=== PATIENT | female | born 1970 | race Caucasian/White ===

== ENCOUNTER → 2019-04-01 09:39 | Outpatient (CLI) | payer OTHER ==
[2013-05-17 09:14] VITALS: BMI 45.3
[~2019-04-01 09:39] MED LIST: BYSTOLIC5 MG PO; CALCIUM CITRATE1 TAB PO; CLARITIN 10 MG10 MG NG; FISH OIL 1,0001 CA1 PO; LASIX20 MG PO; POTASSIUM CHLOR8 ME1 PO; PRAVACHOL10 MG PO; PREDNISONE10 MG PO; PRILOSEC20 MG PO; PROAIR HFA8.5 GM INH; RYBIX ODT50 MG PO; VITAMIN D50000 UNIT PO; VOLTAREN75 MG PO
== END | disposition home or self-care (01) ==
LOC: D.RAD 09:00
PROVIDERS: ATTEND Surgery
DX: R47.02 Dysphasia (principal)

== ENCOUNTER 2019-04-29 10:42 | Inpatient (IN) | payer OTHER ==
[2019-04-26 09:16] LABS: HEMATOCRIT 40.8 % (36.0-48.0); HEMOGLOBIN 13.7 g/dL (12-16); MCH 30.2 pg (26.0-34.0); MCHC 33.6 g/dL (31.0-37.0); MCV 89.9 fL (80.0-100.0); MEAN PLATELET VOLUME 8.7 fL (7.4-10.4); RBC 4.54 10x6/uL (4.00-5.40); RDW 13.1 % (11.5-14.5); WBC 10.9 10x3/uL (4.8-10.8)
[2019-04-26 09:20] LABS: CALC OSMOLALITY 276 mosm/kg (275-300); CALCIUM 8.8 mg/dL (8.5-10.1); CARBON DIOXIDE 26.6 mmol/L (21.0-32.0); CHLORIDE - SERUM 105 mmol/L (98-107); CREATININE - SERUM 0.8 mg/dL (0.6-1.3); GLUCOSE 84 mg/dL (74-106); POTASSIUM - SERUM 3.9 mmol/L (3.5-5.1); SODIUM 140 mmol/L (136-145); UREA NITROGEN 10 mg/dL (7-18); eGFR NON AFRICAN AMERICAN 81 mL/min (90-120)
[~2019-04-29] VITALS: Ht 157.5 cm; Wt 104.5 kg
[2019-04-29] VITALS (13 sets, daily range): BP systolic 122–149; BP diastolic 67–76; Ht 157.5 cm; Wt 104.5 kg
[2019-04-29 07:41] LABS: HCG URINE NEGATIVE (NEGATIVE)
[~2019-04-29 10:42] MED LIST changes: +AMBIEN10 MG PO; +BAYER CHEWABLE81 MG PO; +CARDIZEM CD240 MG PO; +COLCRYS0.6 MG PO; +DUPIXENT IM; +LEXAPRO10 MG PO; +SYMBICORT 16010.2 GM INH; +ZYRTEC10 MG PO
--- NOTE | 2019-04-29 11:16 | NUR ---
PATIENT ADMITTED TO ROOM 2227. ADMISSION ASSESSMENT COMPLETE. SPOKE WITH DR JOINER WHO CHANGED MORPHINE CODING TEAM LEAD TO DILAUDID CODING TEAM LEAD D/T PATIENT ALLERGIC TO MORPHINE. DILAUDID CODING TEAM LEAD SET UP. PHARMACY CALLED FOR MYLICON DROPS. PT HAVING GAS PAIN IN SHOULDERS. DENIES FURTHER NEEDS. WILL CONTINUE TO MONITOR. POST OP VITALS STABLE.
--- NOTE | 2019-04-29 12:00 | NUR ---
STATES PAIN SLIGHTLY IMPROVED TO 8/10 FROM 10/10. NO PAIN IN STOMACH OR AT INCISION SITES. PAIN IN SHOULDERS FROM GAS. WILL CONTINUE TO MONITOR.
--- NOTE | 2019-04-29 13:25 | NUR ---
RESTING IN BED. DENIES NEEDS. POST OP VITALS REMAIN STABLE. WILL CONTINUE TO MONITOR.
--- NOTE | 2019-04-29 14:21 | NUR ---
STATES PAIN DECREASED TO 5/10. WILL CONTINUE TO MONITOR.
--- NOTE | 2019-04-29 16:37 | NUR ---
RESTING IN BED. TOLERATED POPCICLE AND JELLO. DENIES NEEDS. WILL CONTINUE TO MONITOR.
--- NOTE | 2019-04-29 17:22 | OP ---
PATIENT NAME: KATELYN LING MEDICAL RECORD: [id number] :68 LOCATION:D.[id number] ADMISSION DATE: SURGEON: MICHAEL JOINER MD DATE OF OPERATION: 04/29/2019 SURGEON: Michael Joiner MD PREOPERATIVE DIAGNOSES: 1. Dysphagia. 2. Gastroesophageal reflux disease. 3. History of laparoscopic adjustable gastric banding. 4. Morbid obesity. 5. Essential hypertension. POSTOPERATIVE DIAGNOSES: 1. Dysphagia. 2. Gastroesophageal reflux disease. 3. History of laparoscopic adjustable gastric banding. 4. Morbid obesity. 5. Essential hypertension. PROCEDURE PERFORMED: 1. Laparoscopic hiatal hernia repair. 2. Laparoscopic partial gastrectomy. 3. Laparoscopic gastric band removal and subcutaneous components. ANESTHESIA: General. COMPLICATIONS: None. SPECIMENS: 1. Partial gastrectomy. 2. Laparoscopic band and subcutaneous components. ANESTHESIA: General. ESTIMATED BLOOD LOSS: 40 cc. Case was clean contaminated. OPERATIVE COURSE: After consent was obtained, the patient was taken to the operating room and placed in the supine position on the operating room table. Next, general anesthesia was given via endotracheal intubation after a timeout was performed to confirm the correct patient and procedure. The abdomen was prepped and draped in typical sterile fashion. Local anesthetic was injected just above the umbilicus. A stab incision was made with 11-blade scalpel. Using an 11-mm bladeless optical trocar, the abdomen was entered under direct laparoscopic vision. Adequate pneumoperitoneum was achieved. The abdominal cavity was inspected. No evidence of bowel injury. No evidence of bleeding. At this time, all remaining trocars were placed under direct laparoscopic vision, a 12-mm trocar in the right lateral quadrant, 5-mm trocar in the left lateral and right lateral quadrant and a Charan retractor in the subxiphoid position. All instruments were placed under direct laparoscopic vision. The left lobe of the liver was then elevated using the Charan liver retractor exposing the GE junction. There were severe adhesions noted from the OPERATIVE REPORT [id number] KATELYN LING undersurface of the liver to the anterior stomach of the gastric band. Meticulous dissection was performed with a combination of electrocautery and sharp scissor dissection, freeing up the adhesions. The capsule was opened along the length of the gastric band using electrocautery. The clasp was undone. The tubing was then cut with Metzenbaum scissors. The band was unclasped and was removed and placed in the left lateral quadrant at this time. This was done in conjunction simultaneously as the hiatus was dissected as the gastric band and upper portion of the stomach were within the hiatal hernia. Circumferential dissection continued on the right crura with the Harmonic scalpel and posteriorly until the left crura was identified. This was quite difficult as the previous operation there were multiple sutures along the left crura to the stomach, which had been wrapped around the band and secured on the left side near the crura. The adhesions and crural sutures were taken down using Harmonic scalpel. A small gastrotomy in the cardia of the stomach was made. The remaining portion of the stomach was then able to be dissected off of the left crura allowing for circumferential dissection. The hiatus was then dissected until approximately 4-5 cm of intra-abdominal esophagus were obtained. The remaining portion of the capsule was dissected using the Harmonic scalpel. The hiatus was then closed with 0 Stratafix polypropylene suture. The gastrotomy was closed using a single firing of the linear cutting stapler. The gastrectomy specimen was approximately 4 cm in length and 2 cm in width. The partial gastrectomy specimen was then removed. The gastric band was then removed as well through the 12-mm trocar site. The 11-mm trocar site was closed with an 0 Vicryl suture and a Vikas-Sherrie suture passer in direct laparoscopic vision. At this time, the abdomen was copiously irrigated and suctioned. Careful attention was paid to hemostasis. The staple line was meticulously inspected with no evidence of leak or bleeding. At this time, the Charan liver retractor was removed. All remaining instruments were removed. The abdomen was desufflated. Trocars were removed. The subcutaneous port was within the 12-mm trocar insertion site, which was opened to allow for dissection on to the subcutaneous port. Dissection of the subcutaneous port was performed with electrocautery. It was grasped and removed in its entirety and sent for permanent pathology with the gastric band. The fascia was then closed with an 0 Vicryl suture. Skin incisions were then closed with 4-0 Monocryl, Mastisol, and Steri-Strips. At the end of case, all needle and instrument counts were correct. No complications occurred. The patient was extubated and transferred to the PACU in stable condition. TRANSINT:[id number] Voice Confirmation ID: [id number] DOCUMENT ID: [id number] MICHAEL JOINER MD at 1722 CC: [id number] DICTATION DATE: 04/29/19 1007 COKE INSPECTOR: 04/29/19 1102 REG [facility] [address] [id number]
--- NOTE | 2019-04-29 18:15 | NUR ---
RESTING IN BED. DENIES NEEDS. BED LOW. CALL TRIMBLE AND PERSONAL ITEMS IN REACH. WILL CONTINUE TO MONITOR.
--- NOTE | 2019-04-30 00:02 | NUR ---
A&O X 4. 5 LAP SITES TO ABDOMEN, C/D/I. REPORTS GAS PAIN IN UPPER BODY. STATES SHE'S BEEN GETTING UP AND WALKING AROUND. WILL CONTINUE TO MONITOR.
[2019-04-30 00:47] VITALS: BP 139/69
[2019-04-30 05:14] VITALS: BP 126/66
--- NOTE | 2019-04-30 06:38 | NUR ---
I have reviewed this patient and I concur with the Shift Assessment completed by the Licensed Practical Nurse today this shift.
[2019-04-30 06:40] LABS: ALBUMIN 3.4 g/dL (3.4-5.0); ANION GAP 12.7 mmol/L (8-16); BILIRUBIN - TOTAL 0.49 mg/dL (0.2-1.3); CALCIUM 8.4 mg/dL (8.5-10.1); CARBON DIOXIDE 27.8 mmol/L (21.0-32.0); CREATININE - SERUM 0.9 mg/dL (0.6-1.3); POTASSIUM - SERUM 3.5 mmol/L (3.5-5.1); PROTEIN - SERUM 6.6 g/dL (6.4-8.2)
[2019-04-30 06:55] LABS: HEMATOCRIT 38.7 % (36.0-48.0); HEMOGLOBIN 12.8 g/dL (12-16); MCH 30.2 pg (26.0-34.0); MCHC 33.1 g/dL (31.0-37.0); MCV 91.3 fL (80.0-100.0); MEAN PLATELET VOLUME 8.7 fL (7.4-10.4); PLATELET COUNT 348 10x3/uL (130-400); RBC 4.24 10x6/uL (4.00-5.40); RDW 13.3 % (11.5-14.5); WBC 20.1 10x3/uL (4.8-10.8)
--- NOTE | 2019-04-30 07:47 | NUR ---
ALERT AND ORIENTED. LUNGS CLEAR BIALTERALLY. HEART SOUNDS S1 AND S2 HEARD IN ALL ROY. LAP SITES X 5 TO ABD C/D/I. IV TO RIGHT HAND PATENT WITHOUT REDNESS. RADIO NEWS WRITER INFUSING. DENIES NEEDS. BED LOW. CALL TRIMBLE AND PERSONAL ITEMS IN REACH. WILL CONTINUE TO MONITOR.
[2019-04-30 07:54] LABS: LYMPHOCYTES 1 % (15-50); MONOCYTES 7 % (2-11); NEUTROPHILS 90 % (40-80); PLATELET ESTIMATE NORMAL
[2019-04-30 08:37] VITALS: BP 118/67
[2019-04-30] MEDS ORDERED: HYDROCODON-ACE1 EAC7 PO (08:42)
--- NOTE | 2019-04-30 11:45 | NUR ---
PATIENT STATES JORY MAKES HER SICK AND REQUESTS DISCHARGE PAIN MED CHANGE TO LOW DOSE OF PERCOCET. SPOKE WITH DR JOINER WHO STATES WILL CHANGE DISCHARGE MED.
[2019-04-30] MEDS ORDERED: PERCOCET 5-3251 TAB PO (12:36)
--- NOTE | 2019-04-30 13:46 | NUR ---
DISCHARGE EDUCATION PROVIDED BOTH WRITTEN AND VERBAL. VERBALIZED UNDERSTANDING. DENIES FURTHER QUESTIONS. IV REMOVED FROM RIGHT HAND WITH TIP INTACT. PATIENT DISCHARGED HOME WITH WITH ALL BELONGINGS.
--- NOTE | 2019-05-03 15:01 | MORECARE ---
CASE MANAGEMENT DISCHARGE SUMMARY PATIENT: KATELYN LING UNIT: [id number] ADM DATE: 04/29/19 AGE: 48 : 68 SEX: F ROOM/BED: D.2227 AUTHOR: ADRIANO CUHA PHYSICIAN: REFERRING PHYSICIAN: MICHAEL JOINER MD DATE OF SERVICE: 05/03/19 Discharge Plan Patient Name: KATELYN LING [facility] [facility] 1970 Planned Disposition: Home Anticipated Discharge Date: Discharge Date: 04/30/2019 Expected LOS: 0 Initial Reviewer: [email or web address] Initial Review Date: 05/03/2019 Generated: 05/03/19 4:00 pm Patient Name: KATELYN LING Page 03233 at 1501 All edits/amendments must be made on the electronic document DICTATION DATE: 05/03/191499 RESIDENTIAL FEE APPRAISER: RAJNI 05/03/19 1500 RPT#: [id number] DC DATE:04/30/19 STATUS: DIS IN [facility] [address] [place] [address] END OF REPORT
== END 2019-04-30 13:56 | disposition home or self-care (01) | DRG 327 ==
LOC: D.OPS 10:42 → D.MS 10:42 → D.OPS 11:14 → D.MS 11:16 → D.SDCHOLD 04-30 10:48 → D.MS 04-30 10:48
PROVIDERS: Anesthesiology; ADMIT Surgery; ATTEND Surgery
PROC: 0DP64CZ Removal of Extraluminal Device from Stomach, Percutaneous Endoscopic Approach (ICD-10-PCS; 2019-04-29)
PROC: 0DB64ZZ Excision of Stomach, Percutaneous Endoscopic Approach (ICD-10-PCS; 2019-04-29)
PROC: 0BQT4ZZ Repair Diaphragm, Percutaneous Endoscopic Approach (ICD-10-PCS; principal; 2019-04-29 08:00)
DX: K21.9 Gastro-esophageal reflux disease without esophagitis (principal); Z68.41 Body mass index [BMI] 40.0-44.9, adult; R13.10 Dysphagia, unspecified; E66.01 Morbid (severe) obesity due to excess calories; I10 Essential (primary) hypertension

== ENCOUNTER 2019-05-01 13:59 | Inpatient (IN) | payer OTHER ==
[~2019-05-01] VITALS: Ht 157.5 cm; Wt 112.0 kg
[2019-05-01] VITALS (7 sets, daily range): BP systolic 122–145; BP diastolic 66–74; BMI 44.6
[~2019-05-01 13:59] MED LIST changes: +HYDROCODON-ACE1 EAC7 PO; +PERCOCET 5-3251 TAB PO
[2019-05-01 14:35] LABS: BASOPHILS 0.1 % (0-2); EOSINOPHILS 0.3 % (0-7); HEMATOCRIT 39.2 % (36.0-48.0); HEMOGLOBIN 12.7 g/dL (12-16); IMMATURE GRANULOCYTES 0.5 % (0-5); MCHC 32.4 g/dL (31.0-37.0); MCV 92.7 fL (80.0-100.0); MONOCYTES 6.6 % (2-11); NEUTROPHILS 86.5 % (40-80); PLATELET COUNT 309 10x3/uL (130-400); RBC 4.23 10x6/uL (4.00-5.40); RDW 13.8 % (11.5-14.5); WBC 15.6 10x3/uL (4.8-10.8)
[2019-05-01 14:52] LABS: ALBUMIN 3.3 g/dL (3.4-5.0); ALKALINE PHOSPHATASE 84 U/L (46-116); ALT (SGPT) 34 U/L (10-68); BILIRUBIN - TOTAL 0.81 mg/dL (0.2-1.3); CALCIUM 8.7 mg/dL (8.5-10.1); CARBON DIOXIDE 27.7 mmol/L (21.0-32.0); CHLORIDE - SERUM 102 mmol/L (98-107); CREATININE - SERUM 0.9 mg/dL (0.6-1.3); GLUCOSE 126 mg/dL (74-106); PROTEIN - SERUM 6.9 g/dL (6.4-8.2); SODIUM 140 mmol/L (136-145); eGFR NON AFRICAN AMERICAN 70 mL/min (90-120)
[2019-05-01 14:54] LABS: CALC OSMOLALITY 279 mosm/kg (275-300); POTASSIUM - SERUM 4.5 mmol/L (3.5-5.1); UREA NITROGEN 11 mg/dL (7-18)
[2019-05-01 14:56] LABS: AMYLASE - SERUM 31 U/L (25-115); LIPASE 96 U/L (73-393)
[2019-05-01 14:57] LABS: TROPONIN-I < 0.017 ng/mL (0.000-0.060)
--- NOTE | 2019-05-01 19:00 | NUR ---
REPORT RECIEVED, AWAITING PT TO RETURN FROM CT.
--- NOTE | 2019-05-01 19:20 | NUR ---
PT RETURNED FROM CT. AAOX4, ON ROOM AIR, FACE FLUSH, ASSESSMENT COMPLETED, SEE FLOWSHEET. RT AC PIV INFUSING, SEE IV FLOWSHEET. FOLLOWS COMMANDS, NO ACUTE DISTRESS NOTED, WILL CONTINUE TO MONITOR.
--- NOTE | 2019-05-01 21:00 | NUR ---
PT RESTING IN BED, FAMILY AT BEDSIDE. NO ACUTE DISTRESS NOTED.
[2019-05-01 22:04] LABS: APTT 25.7 SECONDS (22.8-39.4); INR 1.16 (0.85-1.17); PROTIME 14.3 SECONDS (11.6-15.0)
--- NOTE | 2019-05-01 23:00 | NUR ---
PT RESTING IN BED, AAOX4, NO ACUTE DISTRESS NOTED.
[2019-05-02] VITALS (18 sets, daily range): BP systolic 104–145; BP diastolic 63–93; BMI 45.2
--- NOTE | 2019-05-02 01:23 | NUR ---
CRITICOR CATH PUT IN PER MD ORDER WITH STERILE TECHNIQUE. PATIENT TOLERATED OK WITH PAIN AND SHALLOW BREATHING DUE TO PAIN. PAITENT HAD APPROX 400 IMMEDIATE RETURN OF YELLOW URINE.
--- NOTE | 2019-05-02 03:00 | NUR ---
PT RESTING IN BED, PT ON 2L O2 VIA NC. NO ACUTE DISTRESS NOTED.
[2019-05-02 03:43] LABS: APPEARANCE CLEAR (CLEAR); BILIRUBIN NEGATIVE (NEGATIVE); COLOR DK YELLOW (YELLOW); GLUCOSE NEGATIVE (NEGATIVE); KETONE SMALL mg/dL (NEGATIVE); NITRITE NEGATIVE (NEGATIVE); PROTEIN NEGATIVE (NEGATIVE); SPECIFIC GRAVITY 1.015 (1.005-1.020); UROBILINOGEN NORMAL (NORMAL)
[2019-05-02 03:44] LABS: BACTERIA FEW /hpf (NEGATIVE); EPITHELIAL CELLS 0-5 /hpf (0-5); RED CELLS - URINE 0-5 /hpf (0-5); WHITE CELLS - URINE 0-5 /hpf (NEGATIVE)
[2019-05-02 04:40] LABS: BASOPHILS 0.1 % (0-2); EOSINOPHILS 0.3 % (0-7); HEMATOCRIT 37.5 % (36.0-48.0); HEMOGLOBIN 11.8 g/dL (12-16); IMMATURE GRANULOCYTES 0.4 % (0-5); LYMPHOCYTES 5.7 % (15-50); MCH 29.4 pg (26.0-34.0); MCHC 31.5 g/dL (31.0-37.0); MCV 93.3 fL (80.0-100.0); MEAN PLATELET VOLUME 8.7 fL (7.4-10.4); MONOCYTES 7.7 % (2-11); NEUTROPHILS 85.8 % (40-80); PLATELET COUNT 303 10x3/uL (130-400); RBC 4.02 10x6/uL (4.00-5.40); WBC 18.9 10x3/uL (4.8-10.8)
--- NOTE | 2019-05-02 05:00 | NUR ---
PT RESTING IN BED, FAMILY AT BEDSIDE.
[2019-05-02 05:02] LABS: ALBUMIN 2.5 g/dL (3.4-5.0); ALKALINE PHOSPHATASE 108 U/L (46-116); ALT (SGPT) 34 U/L (10-68); BILIRUBIN - TOTAL 0.95 mg/dL (0.2-1.3); CALC OSMOLALITY 282 mosm/kg (275-300); CALCIUM 7.9 mg/dL (8.5-10.1); CARBON DIOXIDE 28.3 mmol/L (21.0-32.0); CHLORIDE - SERUM 106 mmol/L (98-107); CREATININE - SERUM 0.7 mg/dL (0.6-1.3); GLUCOSE 119 mg/dL (74-106); MAGNESIUM - SERUM 1.8 mg/dL (1.8-2.4); PHOSPHOROUS 3.3 mg/dL (2.5-4.9); PROTEIN - SERUM 5.9 g/dL (6.4-8.2); SODIUM 142 mmol/L (136-145); TROPONIN-I < 0.017 ng/mL (0.000-0.060); UREA NITROGEN 9 mg/dL (7-18); eGFR NON AFRICAN AMERICAN > 90 mL/min (90-120)
--- NOTE | 2019-05-02 07:10 | NUR ---
REPORT RECEIVED. ASSESSMENT COMPLETE PER FLOW SHEET. VSS. NO NEW CHANGES WILL CONTINUET OM ONITOR
--- NOTE | 2019-05-02 08:50 | NUR ---
CONSENTS OBTAINED. DR JOINER AT BEDSIDE GIVEN UPDATE. FAMILY GIVEN UPDATE AT BEDSIDE. ALL QUESTIONS ANSWERED. DENIES NEEDS. NEW ORDERS RECEIVED. WILL ADM.
--- NOTE | 2019-05-02 09:10 | NUR ---
OR CALLED TO PREOP. MEDS ADM.
--- NOTE | 2019-05-02 09:58 | NUR ---
OR AT BEDSIDE. PT LEFT VIA BED. FAMILY AT BEDSIDE GIVEN UPDATE.
--- NOTE | 2019-05-02 14:55 | NUR ---
PT BACK FROM OR AT THIS TIME. FAMILY NOTIFIED. DR JOINER AT [facility] NEW ORDERS RECEIVED. WILL ADM .
--- NOTE | 2019-05-02 15:15 | NUR ---
REASSESSMENT COMPLETE PER FLOW SHEET. VSS. PT RSTING COMFORTABLY WILL CONTINUE TOMONITOR
--- NOTE | 2019-05-02 18:23 | OP ---
PATIENT NAME: KATELYN LING MEDICAL RECORD: [id number] :68 LOCATION:.[facility] D.2305 ADMISSION DATE:05/01/19 SURGEON: FREEMAN CARIAS MD DATE OF OPERATION: 05/02/2019 PREOPERATIVE DIAGNOSIS: Postoperative gastric leak. POSTOPERATIVE DIAGNOSIS: Postoperative gastric leak. PROCEDURE: Esophagogastroscopy. SURGEON: Freeman Carias MD SOLDERER: None. BLOOD LOSS: Minimal. ANESTHESIA: General. Dr. DORCAS Ayala was already performing the laparoscopic exploration. He has already done 1 EGD on the patient. He asked for me to come and do a second EGD intraoperatively. DESCRIPTION OF PROCEDURE: The patient was already under general anesthesia and a bite block was already in place. A gastroscope was inserted into the mouth. It was advanced easily into the hypopharynx. The esophagus was easily intubated as well as the stomach. The duodenum was not intubated. He had an instrument through the gastric perforation. I was able to visualize this endoscopically. I then turned off the endoscopic light. He performed the gastric repair. He then instilled normal saline into the left upper quadrant. I insufflated the stomach and we saw no bubbling of air indicating an airtight repair. I then removed the gastroscope without dislodging the nasogastric tube. TRANSINT:[id number] Voice Confirmation ID: [id number] DOCUMENT ID: [id number] FREEMAN CARIAS MD at 1823 CC: [id number] DICTATION DATE: 05/02/19 1328 ICU CLERK: 05/02/[address] [facility] [address] [place] [address]
--- NOTE | 2019-05-02 19:00 | NUR ---
REPORT RECIEVED, PT RESTING IN BED, SITTING UP, AAOX4. ASSESSMENT COMPLETED, SEE FLOWSHEET. TRINY DRAIN X2 IN LEFT AND RIGHT ABDOMEN, LT SUBCLAVIAN CVL, SEE IV FLOWSHEET. PT ON 3L O2 VIA NC. WILL CONTINUE TO MONITOR.
--- NOTE | 2019-05-02 21:00 | NUR ---
PT SITTING UP IN BED, AA0X4, PT FAMILY IN ROOM.
--- NOTE | 2019-05-02 23:00 | NUR ---
PT IN BED, SITTING UP. NO ACUTE DISTRESS NOTED.
[2019-05-03] VITALS (23 sets, daily range): BP systolic 103–155; BP diastolic 50–92; Ht 157.5 cm; Wt 112.0 kg
--- NOTE | 2019-05-03 01:00 | NUR ---
PT SITTING UP IN BED, AAOX4, NO ACUTE DISTRESS NOTED.
--- NOTE | 2019-05-03 02:27 | NUR ---
PT NG TUBE LEAKING, REPLACED AIR VALVE. PT REFUSED LINEN CHANGE.
--- NOTE | 2019-05-03 02:56 | NUR ---
PT AAOX4, RESTING IN BED. RT AC PIV DCED, CATHETER TIP INTACT.
--- NOTE | 2019-05-03 05:00 | NUR ---
PT RESTING IN BED, COMPLETE LINEN CHANGE. FEVER DROPPING, WILL CONTINUE TO MONITOR.
[2019-05-03 05:10] LABS: ANION GAP 12.3 mmol/L (8-16); CALCIUM 7.2 mg/dL (8.5-10.1); CARBON DIOXIDE 24.9 mmol/L (21.0-32.0); POTASSIUM - SERUM 4.2 mmol/L (3.5-5.1)
[2019-05-03 05:17] LABS: BASOPHILS 0.2 % (0-2); EOSINOPHILS 2.3 % (0-7); HEMATOCRIT 32.2 % (36.0-48.0); IMMATURE GRANULOCYTES 0.6 % (0-5); LYMPHOCYTES 6.7 % (15-50); MCH 29.3 pg (26.0-34.0); MCHC 31.1 g/dL (31.0-37.0); MCV 94.4 fL (80.0-100.0); MEAN PLATELET VOLUME 8.7 fL (7.4-10.4); MONOCYTES 9.1 % (2-11); NEUTROPHILS 81.1 % (40-80); PLATELET COUNT 262 10x3/uL (130-400); RBC 3.41 10x6/uL (4.00-5.40); RDW 14.3 % (11.5-14.5); WBC 14.3 10x3/uL (4.8-10.8)
[2019-05-03 05:22] LABS: CREATININE - SERUM 2.7 mg/dL (0.6-1.3)
--- NOTE | 2019-05-03 07:15 | NUR ---
REPORT RECEIEVED ASSESSMENT COMPLETE PER FLOW SHEET. VSS. PT RESTING COMFORTABLY DENIES NEEDS WILL CONTINUE TO MONITOR
--- NOTE | 2019-05-03 07:56 | OP ---
PATIENT NAME: KATELYN LING MEDICAL RECORD: [id number] :68 LOCATION:[facility] D.2305 ADMISSION DATE:05/01/19 SURGEON: MICHAEL JOINER MD DATE OF OPERATION: 05/02/2019 SURGEON: Michael Joiner MD PREOPERATIVE DIAGNOSES: 1. Gastric anastomotic leak. 2. Intraabdominal abscess. 3. Morbid obesity. 4. History of laparoscopic adjustable gastric banding. 5. Status post hiatal hernia repair and gastric band removal. PREOPERATIVE DIAGNOSES: 1. Gastric anastomotic leak. 2. Intraabdominal abscess. 3. Morbid obesity. 4. History of laparoscopic adjustable gastric banding. 5. Status post hiatal hernia repair and gastric band removal. SURGEON: Michael Joiner MD PROCEDURE PERFORMED: Laparoscopic drainage of intra-abdominal abscess, laparoscopic partial gastrectomy, EGD, laparoscopic jejunal feeding tube placement, and left subclavian CVL placement. ANESTHESIA: General. COMPLICATIONS: None. SPECIMENS: Partial gastrectomy Case was grossly contaminated. ESTIMATED BLOOD LOSS: 100 cc. OPERATIVE COURSE: After consent was obtained, the patient was taken to the operating room and placed in the supine position on the operating table. The patient placed in the supine position on the operating room table. Next, general anesthesia was given. Timeout was taken to confirm the correct patient and procedure. The patient's left chest and neck were prepped and draped in typical sterile fashion. Local anesthetic was injected. The left subclavian vein was cannulated in the first pass. A guidewire was placed. The skin incision was made at the needle stick site. The dilator was passed over the wire in standard Seldinger fashion and CVL was then passed over the wire in a standard Seldinger fashion. The wire was removed. All 3 ports were aspirated and flushed. A Biopatch was placed. The catheter was secured to the skin using a 2-0 Prolene suture and sterile occlusive dressing. At this time, the abdomen was prepped and draped in the typical sterile fashion. The previous laparoscopy incisions were opened with an 11-blade scalpel. Using a 10 mm bladeless optical trocar, the abdomen was reentered into the supraumbilical incision under direct laparoscopic vision. Adequate pneumoperitoneum was achieved. There was gross purulent contamination of the entire abdominal cavity. At this time, 3 remaining trocars were then placed, a 12-mm and 5-mm trocar into the right OPERATIVE REPORT [id number] KATELYN LING lateral quadrant, 5-mm trocar in the left lateral quadrant and Charan retractor in the subxiphoid position. The abdominal fluid was suctioned into a Lukens trap and sent for Gram stain culture and sensitivity. At this time, the abdomen was copiously irrigated and suctioned until a significant degree of intra-abdominal contamination was obtained. All 4 quadrants were irrigated and suctioned until control contamination was obtained. At this time, we focused our attention towards the left upper quadrant. A Charan liver retractor was placed exposing the left lobe of the liver and exposing GE junction and diaphragmatic hiatus. At this time, an EGD was performed. A bite block was placed. The scope was passed through the bite block and posterior to the epiglottis under direct endoscopic vision, it was advanced to the esophagus. There were no areas of identifiable trauma noted within the esophagus. The GE junction was unremarkable. The scope was passed in the stomach. The area of perforation could not be identified endoscopically with the gastroscope. The stomach was inflated, the scope was retroflexed, again without any identifiable perforation, although the CT scan findings prior to the operation showed a small stream of contrast noted at the staple line on the partial gastrectomy that was performed on the cardia during the previous operation. At this time, the upper abdomen was filled with water, there was some bubbling noted along the proximal edge of the previous staple line. At this time, the hole was identified laparoscopically. All fibrinous exudate was debrided off the tissue. The tissue was dissected to healthier tissue. This portion of the cardia was mobilized. Again, a partial gastrectomy was performed using the linear cutting ALISA stapler. The specimen was passed off the field and sent for permanent pathology. At this time, the staple line was imbricated using 3-0 PDS plus Stratafix suture. Tisseel was then placed over the staple and suture line. A Justice patch was then created. Omentum was freed up from the left side of the transverse colon. It was delivered up and sewn on to the staple line using 3-0 Vicryl suture. Two TRINY drains were then placed, one TRINY drain was placed to the left lateral quadrant, it was placed in the posterior to the spleen. In the left upper quadrant, a second TRINY drain was placed to the right lateral quadrant and passed posterior to the esophagus and into the left upper quadrant. Prior to this, while the gastroscope was then placed, an NG tube was passed through the left naris and advanced through the esophagus into the stomach and positioned. At this time, the gastroscope was removed. Next, the greater omentum was retracted cephalad as well as the transverse colon exposing the transverse mesocolon. The small bowel was run until the ligament of Treitz was identified. Starting approximately 30-40 cm from the ligament of Treitz, an area was identified. It was sutured to the anterior abdominal wall using 0 silk suture. A small enterotomy was made with the Harmonic scalpel. The incision was then made in the left upper quadrant. A jejunostomy feeding tube was passed through the abdominal wall and placed into the enterotomy. The J-tube was then advanced. The balloon was inflated and a final suture was used, securing the jejunum to the anterior abdominal wall using 4-point fixation with 0 silk suture. Again, this time, the abdomen was again copiously irrigated and suctioned paying careful attention to remove as much visible contamination as possible. Once this was complete, all remaining instruments were removed. The trocar sites were closed with 0 Vicryl suture and a Vikas-Sherrie suture passer in direct laparoscopic vision. The skin was closed with 4-0 Monocryl, Mastisol and Steri-Strips. At the end of the case, all needle and instrument counts were correct. No complications occurred. The patient was extubated and transferred to the PACU in stable condition. TRANSINT:[id number] Voice Confirmation ID: [id number] DOCUMENT ID: [id number] OPERATIVE REPORT [id number] KATELYN LING,MICHAEL Garcia MD at 0756 CC: [id number] DICTATION DATE: 05/02/191408 PERSONNEL SPECIALIST: 05/02/192232 ADM IN [id number] [place] [address]
--- NOTE | 2019-05-03 08:14 | NUR ---
Nutrition follow-up: Pt s/p surgery with J-tube placed Osmolite 1.0 fco started @ 30 ml/hr; per Dr. Ayala, do not advance today. Labs reviewed Recommend, if pt tolerating TF, to increase 10 ml/hr Q 6-8 hours to goal rate of 75 ml/hr with 25 ml H2O flush Q hour. RDN following.
--- NOTE | 2019-05-03 08:20 | NUR ---
DR JOINER AT BEDSIDE GIVEN UPDATE NEW ORDERS RECEIVED.
--- NOTE | 2019-05-03 09:34 | NUR ---
FAMILY AT BEDSIDE NO NEW CHANGES VSS WILL CONTINUE TO MONITOR
--- NOTE | 2019-05-03 11:15 | NUR ---
REASSESSMENT COMPLETE PER FLOW SHEET. VSS. NO NEW CHANGES PT RESTING COMFORTABLY WILL CONTINUET O MONITOR
--- NOTE | 2019-05-03 11:46 | MORECARE ---
CASE MANAGEMENT DISCHARGE SUMMARY PATIENT: KATELYN LING UNIT: [id number] ADM DATE: 05/01/19 AGE: 48 : 68 SEX: F ROOM/BED: D.2305 AUTHOR: ADRIANO CHUA PHYSICIAN: REFERRING PHYSICIAN: HETAL CARIAS MD DATE OF SERVICE: 05/03/19 Discharge Plan Patient Name: [facility]ATELYN LING [facility] [facility] 1970 Planned Disposition: Home Anticipated Discharge Date: Discharge Date: Expected LOS: Initial Reviewer: [email or web address] Initial Review Date: 05/03/2019 Generated: 05/03/19 12:45 pm DCP- Discharge Planning Updated by FELICITY: Cielo Devi on 05/02/19 6:[address] CM attempted see patient for d/c planning patient was just post op from surgery. CM will continue to follow and assist as needed with discharge planning / needs DCPIA - Discharge Planning Initial Assessment Updated by FELICITY: Cielo Devi on 05/03/19 11:46 am * Is the patient Alert and Oriented? Yes * How many steps to enter\exit or inside your home? * PCP WILLA * Pharmacy [facility] * Preadmission Environment Home with Family * ADLs Independent * Equipment None * List name and contact numbers for known caregivers / representatives who currently or will assist patient after discharge: CORINNA LING - [facility] - [phone] * Verbal permission to speak to the caregivers and representatives has been obtained from the patient. Yes * Community resources currently utilized None * Additional services required to return to the preadmission environment? No * Can the patient safely return to the preadmission environment? Yes * Has this patient been hospitalized within the prior 30 days at any hospital? No Patient Name: KATELYN LING Page [id number] at 1146 All edits/amendments must be made on the electronic document DICTATION DATE: 05/03/19 1145 PHOTOENGRAVING FINISHER: RAJNI 05/03/19 1145 RPT#: [id number] DC DATE: STATUS: ADM IN [facility] [address] [place] [address] END OF REPORT
--- NOTE | 2019-05-03 11:54 | MORECARE ---
CASE MANAGEMENT DISCHARGE SUMMARY PATIENT: KATELYN LING UNIT: [id number] ADM DATE: 05/01/19 AGE: 48 : 68 SEX: F ROOM/BED: D.2301 AUTHOR: TOMA,DOC PHYSICIAN: REFERRING PHYSICIAN: HETAL CARIAS MD DATE OF SERVICE: 05/03/19 Discharge Plan Patient Name: KATELYN LING Facility: [facility]:[place] : 1970 Planned Disposition: Home Anticipated Discharge Date: Discharge Date: Expected LOS: Initial Reviewer: [email or web address] Initial Review Date: 05/03/2019 Generated: 05/03/19 12:54 pm Comments DCP- Discharge Planning Updated by [email or web address]: Cielo Devi on 05/03/19 10:[address] Patient Name: KATELYN LING Admission Status: ER Accout number: [id number] Admission Date: 05-01-2019 : 1970 Admission Diagnosis: Attending: HETAL CARIAS Current LOS: 2 Anticipated DC Date: Planned Disposition: Home Primary Insurance: [employer] INS EXCHANGE Discharge Planning Comments: CM met with patient to complete initial dc planning assessment. CM educated patient on the CM role and verbal consent given by patient to complete assessment. Patient lives at home with her where she is independent with her care. At discharge patient plans to return home and feels this is a safe discharge. CM discussed availability of home health, rehab services, and medical equipment. Her family will drive her home upon discharge. Patient denied known discharge needs at this time. CM will continue to follow and will assist as needed with dc plans/needs. Screen Printing Equipment Setter: Cielo Devi DCP- Discharge Planning Updated by [email or web address]: Cielo Devi on 05/02/19 6:[address] CM attempted see patient for d/c planning patient was just post op from surgery. CM will continue to follow and assist as needed with discharge planning / needs DCPIA - Discharge Planning Initial Assessment Updated by [email or web address]: Cielo Devi on 05/03/19 11:46 am * Is the patient Alert and Oriented? Yes * How many steps to enter\exit or inside your home? * PCP WILLA * Pharmacy [facility] * Preadmission Environment Home with Family * ADLs Independent * Equipment None * List name and contact numbers for known caregivers / representatives who currently or will assist patient after discharge: CORINNA LING - - [phone] * Verbal permission to speak to the caregivers and representatives has been obtained from the patient. Yes * Community resources currently utilized None * Additional services required to return to the preadmission environment? No * Can the patient safely return to the preadmission environment? Yes * Has this patient been hospitalized within the prior 30 days at any hospital? No Last DP export: 05/03/19 10:46 Patient Name: KATELYN LING Page 85219 at 1154 All edits/amendments must be made on the electronic document DICTATION DATE: 05/03/191153 FX ARTIST: RAJNI 05/03/191153 RPT#: [id number] DC DATE: STATUS: ADM IN [facility] [address] [place] [address] END OF REPORT
--- NOTE | 2019-05-03 13:11 | NUR ---
PT UP OOB TO CHAIR AT THIS TIME. TUBE FEEDS TO J TUBE STARTED PER ORDER WILL CONTINUE TO MONITOR
--- NOTE | 2019-05-03 15:00 | NUR ---
REASSESSMENT COMPLETE PER FLOW SHEET. VSS. NO NEW CHANGES WILL CONTINUE TO MONITOR
--- NOTE | 2019-05-03 15:32 | NUR ---
PHYSICAL THERAPY CALLED TO ASSIST TO BED REQUESTED BY PT
--- NOTE | 2019-05-03 17:20 | NUR ---
FAMILY AT BEDSIDE GIVEN UDPATE
--- NOTE | 2019-05-03 19:05 | NUR ---
BEDSIDE SHIFT REPORT COMPLETED VSS CPOC
--- NOTE | 2019-05-03 20:16 | NUR ---
SHIFT ASSESSMENT COMPLETED AT THIS TIME, UOP ADEQUATE CVP 16 - BOWEL SOUNDS HEARD RLQ ONLY - PT REQUESTED ICE CHIPS AT THIS TIME
--- NOTE | 2019-05-03 20:40 | NUR ---
DR JOINER AT BEDSIDE. NEW ORDERS RECEIVED
--- NOTE | 2019-05-03 21:15 | NUR ---
500 CC FLUID CHALLENGE INITIATED AT THIS TIME FOR UOP OF 22CC OVER THE PAST HOUR
--- NOTE | 2019-05-03 23:20 | NUR ---
REASSESSMENT COMPLETED SEE FLOWSHEET
[2019-05-04] VITALS (18 sets, daily range): BP systolic 120–163; BP diastolic 59–93
--- NOTE | 2019-05-04 01:56 | NUR ---
PT REPOSITIONED FOR COMFORT LINES CHANGED PER POLICY. VSS CPOC
[2019-05-04 05:56] LABS: BASOPHILS 0.2 % (0-2); EOSINOPHILS 6.7 % (0-7); HEMATOCRIT 29.5 % (36.0-48.0); HEMOGLOBIN 9.2 g/dL (12-16); IMMATURE GRANULOCYTES 0.7 % (0-5); LYMPHOCYTES 7.1 % (15-50); MCH 29.2 pg (26.0-34.0); MCHC 31.2 g/dL (31.0-37.0); MCV 93.7 fL (80.0-100.0); MEAN PLATELET VOLUME 9.1 fL (7.4-10.4); MONOCYTES 7.3 % (2-11); PLATELET COUNT 236 10x3/uL (130-400); RBC 3.15 10x6/uL (4.00-5.40); RDW 14.2 % (11.5-14.5); WBC 11.5 10x3/uL (4.8-10.8)
[2019-05-04 06:15] LABS: ANION GAP 12.8 mmol/L (8-16); CALCIUM 7.6 mg/dL (8.5-10.1); CARBON DIOXIDE 22.6 mmol/L (21.0-32.0); VANCOMYCIN - RANDOM 17.5 ug/mL (10.0-20.0)
[2019-05-04 06:19] LABS: CREATININE - SERUM 3.7 mg/dL (0.6-1.3); POTASSIUM - SERUM 3.4 mmol/L (3.5-5.1)
--- NOTE | 2019-05-04 07:00 | NUR ---
REPORT RECEVIED FROM THE OFF GOING RN. SEE ASSESSMENT IN THE PTS FLOW SHEET. PT A&O X4. DENIES PAIN AT THIS TIME. NGT NOTED TO LEFT NARE LIS. DARK GREEN SECREATIONS NOTED. LEFT SUBCLAVIAN CVL NOTED. SEE IV FLUIDS IN FLOW SHEET. RUQ AND LUQ DRESSING C/D/I WITH SEROUS DRAINAGE NOTED. TRINY DRAIN NOTED UNDER EACH DRESSING. LAP SITES X2 UNDER EACH DRESSING WELL APPROXIMATED WITH NO DRAINAG. LEFT J TUBE NOTED. NO REDSIDUAL NOTED. FC NOTED. CLEAR, YELLOW URINE NOTED. CALL LIGHT IN REACH. WILL CONT POC.
--- NOTE | 2019-05-04 07:41 | NUR ---
PAGED DR CABELLO - NEW ORDERS RECEIVED
--- NOTE | 2019-05-04 08:25 | NUR ---
RENAL DIRECTOR CHANNEL AT THE BEDSIDE.
--- NOTE | 2019-05-04 10:19 | NUR ---
ABD DRESSING CHANGED. SEROUS DRAINAGE NOTED FROM OLD BANDAGES. FULL CHD BATH GIVEN.
--- NOTE | 2019-05-04 13:41 | NUR ---
DR JOINER AT THE PTS BEDSIDE. DC HOURLY I&O'S, DC CVP AND TRANSFER TO THE FLOOR.
--- NOTE | 2019-05-04 14:50 | NUR ---
FAMILY AT THE PTS BEDSIDE. VSS. WILL CONT POC.
[2019-05-04 17:37] LABS: APPEARANCE CLEAR (CLEAR); BILIRUBIN NEGATIVE (NEGATIVE); COLOR YELLOW (YELLOW); GLUCOSE NEGATIVE (NEGATIVE); KETONE NEGATIVE (NEGATIVE); NITRITE NEGATIVE (NEGATIVE); PROTEIN TRACE mg/dL (NEGATIVE); UROBILINOGEN NORMAL (NORMAL)
[2019-05-04 17:39] LABS: WHITE CELLS - URINE OCC /hpf (NEGATIVE)
[2019-05-04 17:40] LABS: BACTERIA FEW /hpf (NEGATIVE); RED CELLS - URINE 0-5 /hpf (0-5)
--- NOTE | 2019-05-04 18:00 | NUR ---
PT ASSISTED BACK INTO BED. BLOOD NOTED BETWEEN THE PTS LEGS. ONCE ASKED IF SHE IS ON HER PERIOD, SHE STATED "PROBABLY" HYGIEN PRODUCTS PROVIDED FOR THE PT.
--- NOTE | 2019-05-04 18:58 | NUR ---
REPORT CALLED TO MED SURG NURSE. PT TRANSPORTED VIA WC. LEFT ICU WITH STABLE VITAL SIGNS AND NO S/SX OF DISTRESS/DISCOMFORT. ALL BELONGINGS ACCOUNTED FOR.
--- NOTE | 2019-05-04 22:00 | NUR ---
A/O WITH NO SIGNS OF ACUTE DISTRESS. NG TUBE TO THE LEFT NARE WITH GREEN DISCHARGE AND CENTRAL LINE TO THE LEFT CHEST, CDI WITH NO REDNESS OR SWELLING. ABDOMEN ROUND AND SOFT WITH LAP SITES X3. TRINY DRAIN TO THE RIGHT AND LEFT OF ABDOMEN. PERFORMED DRESSING CHANGE WHEN NOTIFIED THAT DRESSING WAS LEAKING. SITES SHOW NO REDNESS OR SWELLING. ALSO PROVIED RAOUL CARE DUE TO MENES. PT RESTING COMFORTABLY WITH AT BEDSIE. DENIES ANY FURTHER NEEDS. CONTINUE WITH PLAN OF CARE.
[2019-05-05] VITALS: BP 165/81
[2019-05-05 04:00] VITALS: BP 176/83
[2019-05-05 05:55] LABS: BASOPHILS 0.2 % (0-2); EOSINOPHILS 0.5 % (0-7); HEMATOCRIT 29.9 % (36.0-48.0); HEMOGLOBIN 9.7 g/dL (12-16); IMMATURE GRANULOCYTES 1.4 % (0-5); LYMPHOCYTES 4.6 % (15-50); MCH 29.8 pg (26.0-34.0); MCHC 32.4 g/dL (31.0-37.0); MEAN PLATELET VOLUME 8.9 fL (7.4-10.4); MONOCYTES 3.8 % (2-11); NEUTROPHILS 89.5 % (40-80); PLATELET COUNT 243 10x3/uL (130-400); RBC 3.26 10x6/uL (4.00-5.40)
[2019-05-05 05:59] LABS: MCV 91.7 fL (80.0-100.0); WBC 8.3 10x3/uL (4.8-10.8)
[2019-05-05 06:20] LABS: ANION GAP 15.5 mmol/L (8-16); CALCIUM 8.3 mg/dL (8.5-10.1); CARBON DIOXIDE 21.9 mmol/L (21.0-32.0); CREATININE - SERUM 3.5 mg/dL (0.6-1.3); MAGNESIUM - SERUM 2.3 mg/dL (1.8-2.4); PHOSPHOROUS 4.1 mg/dL (2.5-4.9); POTASSIUM - SERUM 3.4 mmol/L (3.5-5.1); VANCOMYCIN - RANDOM 11.9 ug/mL (10.0-20.0)
[2019-05-05 07:59] VITALS: BP 178/88
--- NOTE | 2019-05-05 08:00 | NUR ---
ASSESSMENT PER FLOW SHEET. PT IS WITHOUT DISTRESS.MONITOR FOR NEEDS.CALL LIGHT IN REACH
[2019-05-05 14:17] VITALS: BP 132/61
--- NOTE | 2019-05-05 16:00 | NUR ---
LOUIS CATHETER DC'D ORDERED WITH CATH TIP INTACT. 700CC OF YELLOW URINE EMPTIED FROM BAG.3CC OF SALINE REMOVED FROM J TUBE BALLOON ORDERED. NGT DCD WITH TIP INTACT.PT TOLERATED WELL.MONITOR FOR NEEDS
--- NOTE | 2019-05-05 18:00 | NUR ---
TOLERATING ICE CHIPS AND ICE POPS. SHE IS WITHOUT DISTRESS.TRINY DRAIN DCD FROM RIGHT SIDE. PT TOLERATED WELL.CONT PLAN OF CARE
[2019-05-05 20:00] VITALS: BP 159/78
--- NOTE | 2019-05-05 20:00 | NUR ---
A/O WITH NO SIGNS OF ACUTE DISTRESS. LEFT CHEST MIDLINE NOTED WITH NO SWELLING OR REDNESS, CDI. TRINY DRAIN NOTED TO THE LEFT SIDE OF THE ABDOMEN WITH SEROSANGUINEOUS DRAINAGE. J TUBE TO THE LUQ WITH CLEAN DRESSING OVER SITE. PT TOLERATING ICE CHIPS AND POPICLES. DENIES ANY OTHER NEEDS AT THIS TIME. CONTINUE WITH PLAN OF CARE.
[2019-05-06] VITALS: BP 172/88
[2019-05-06 04:00] VITALS: BP 179/84
--- NOTE | 2019-05-06 05:00 | NUR ---
DRESSING CHANGE TO THE ABDOMEN. TRINY DRAIN AND J TUBE SHOW NO REDNESS OR SWELLING AROUND SITE. DENIES PAIN OR OTHER NEEDS AT THIS TIME. CONTINUE WITH PLAN OF CARE.
[2019-05-06 05:58] LABS: CALCIUM 8.4 mg/dL (8.5-10.1); CARBON DIOXIDE 23.2 mmol/L (21.0-32.0); CREATININE - SERUM 2.7 mg/dL (0.6-1.3); POTASSIUM - SERUM 3.2 mmol/L (3.5-5.1); VANCOMYCIN - RANDOM 18.2 ug/mL (10.0-20.0)
[2019-05-06 06:06] LABS: BASOPHILS 0.2 % (0-2); EOSINOPHILS 0.9 % (0-7); HEMATOCRIT 28.1 % (36.0-48.0); IMMATURE GRANULOCYTES 3.8 % (0-5); LYMPHOCYTES 8.7 % (15-50); MCH 29.2 pg (26.0-34.0); MCV 91.2 fL (80.0-100.0); MEAN PLATELET VOLUME 8.8 fL (7.4-10.4); MONOCYTES 7.7 % (2-11); NEUTROPHILS 78.7 % (40-80); PLATELET COUNT 245 10x3/uL (130-400); RBC 3.08 10x6/uL (4.00-5.40); RDW 14.2 % (11.5-14.5); WBC 8.7 10x3/uL (4.8-10.8)
--- NOTE | 2019-05-06 08:15 | NUR ---
PATIENT IN BED WITH IV INTACT. TRINY INTACT WELL. NO COMPLAINTS AT THIS TIME. CALL LIGHT WITHIN REACH.
[2019-05-06 08:36] VITALS: BP 167/83
--- NOTE | 2019-05-06 11:21 | MORECARE ---
CASE MANAGEMENT DISCHARGE SUMMARY PATIENT: KATELYN LING UNIT: [id number] ADM DATE: 05/01/19 AGE: 48 : 68 SEX: F ROOM/BED: D.2224 AUTHOR: TOMA,DOC PHYSICIAN: REFERRING PHYSICIAN: MICHAEL JOINER MD DATE OF SERVICE: 05/06/19 Discharge Plan Patient Name: KATELYN LING Facility: [facility]:[place] : 1970 Planned Disposition: Home Anticipated Discharge Date: Discharge Date: Expected LOS: Initial Reviewer: [email or web address] Initial Review Date: 05/03/2019 Generated: 05/06/19 12:20 pm Comments DCP- Discharge Planning Updated by [email or web address]: Cielo Devi on 05/03/19 10:[address] Patient Name: KATELYN LING Admission Status: ER Accout number: [id number] Admission Date: 05-01-2019 : 1970 Admission Diagnosis: Attending: HETAL CARIAS Current LOS: 2 Anticipated DC Date: Planned Disposition: Home Primary Insurance: [employer] INS EXCHANGE Discharge Planning Comments: CM met with patient to complete initial dc planning assessment. CM educated patient on the CM role and verbal consent given by patient to complete assessment. Patient lives at home with her where she is independent with her care. At discharge patient plans to return home and feels this is a safe discharge. CM discussed availability of home health, rehab services, and medical equipment. Her family will drive her home upon discharge. Patient denied known discharge needs at this time. CM will continue to follow and will assist as needed with dc plans/needs. Event Producer: Cielo Devi DCP- Discharge Planning Updated by [id number]: Cielo Devi on 05/02/19 6:[address] CM attempted see patient for d/c planning patient was just post op from surgery. CM will continue to follow and assist as needed with discharge planning / needs DCPIA - Discharge Planning Initial Assessment Updated by [email or web address]: Cielo Devi on 05/03/19 11:46 am * Is the patient Alert and Oriented? Yes * How many steps to enter\exit or inside your home? * PCP WILLA * Pharmacy [facility] * Preadmission Environment Home with Family * ADLs Independent * Equipment None * List name and contact numbers for known caregivers / representatives who currently or will assist patient after discharge: CORINNA LING - - [phone] * Verbal permission to speak to the caregivers and representatives has been obtained from the patient. Yes * Community resources currently utilized None * Additional services required to return to the preadmission environment? No * Can the patient safely return to the preadmission environment? Yes * Has this patient been hospitalized within the prior 30 days at any hospital? No External Providers External Provider: [facility] Next Contact Date: Service Request Date: Service Type: Resolution: Reviewer: Comments: Last DP export: 05/03/19 10:54 Patient Name: KATELYN LING Page 70810 at 1121 All edits/amendments must be made on the electronic document DICTATION DATE: 05/06/191119 ELECTRO MECHANIC: RAJNI 05/06/19 112 RPT#: [id number] DC DATE: STATUS: ADM IN [facility] [address] [place] [address] END OF REPORT
--- NOTE | 2019-05-06 11:33 | MORECARE ---
CASE MANAGEMENT DISCHARGE SUMMARY PATIENT: KATELYN LING UNIT: [id number] ADM DATE: 05/01/19 AGE: 48 : 68 SEX: F ROOM/BED: D.2224 AUTHOR: TOMA,DOC PHYSICIAN: REFERRING PHYSICIAN: MICHAEL JOINER MD DATE OF SERVICE: 05/06/19 Discharge Plan Patient Name: KATELYN LING Facility: [facility]:[place] : 1970 Planned Disposition: Home Anticipated Discharge Date: Discharge Date: Expected LOS: Initial Reviewer: [email or web address] Initial Review Date: 05/03/2019 Generated: 05/06/19 12:33 pm Comments DCP- Discharge Planning Updated by [email or web address]: Bibi Chandler on 05/06/19 10:[address] Met with patient today concerning DME company for tube feedings. She would like to use [facility]. I called Celia and clinical faxed. She states she would also like home health because she will be at home much of the time alone. [facility] for [email or web address]. I called and spoke to Shelly and clinical faxed to [email or web address] [facility]. CM will continue to follow and assist with discharge planning/needs. DCP- Discharge Planning Updated by [id number]: Cielo Devi on 05/03/19 10:[address] Patient Name: KATELYN LING Admission Status: ER Accout number: [id number] Admission Date: 05-01-2019 : 1970 Admission Diagnosis: Attending: HETAL CARIAS Current LOS: 2 Anticipated DC Date: Planned Disposition: Home Primary Insurance: [employer] INS EXCHANGE Discharge Planning Comments: CM met with patient to complete initial dc planning assessment. CM educated patient on the CM role and verbal consent given by patient to complete assessment. Patient lives at home with her where she is independent with her care. At discharge patient plans to return home and feels this is a safe discharge. CM discussed availability of home health, rehab services, and medical equipment. Her family will drive her home upon discharge. Patient denied known discharge needs at this time. CM will continue to follow and will assist as needed with dc plans/needs. Configuration Management Architect: Cielo Devi DCP- Discharge Planning Updated by [email or web address]: Cielo Marito on 05/02/19 6:[address] CM attempted see patient for d/c planning patient was just post op from surgery. CM will continue to follow and assist as needed with discharge planning / needs DCPIA - Discharge Planning Initial Assessment Updated by [email or web address]: Cielo Gomezr on 05/03/19 11:46 am * Is the patient Alert and Oriented? Yes * How many steps to enter\exit or inside your home? * PCP WILLA * Pharmacy [facility] * Preadmission Environment Home with Family * ADLs Independent * Equipment None * List name and contact numbers for known caregivers / representatives who currently or will assist patient after discharge: CORINNA LING - - [phone] * Verbal permission to speak to the caregivers and representatives has been obtained from the patient. Yes * Community resources currently utilized None * Additional services required to return to the preadmission environment? No * Can the patient safely return to the preadmission environment? Yes * Has this patient been hospitalized within the prior 30 days at any hospital? No External Providers [facility] Next Contact Date: Service Request Date: Service Type: Resolution: Reviewer: Comments: Coverage Notice Reviewer: [email or web address] Sima Chandler Notice Issued Date-Time: 05/06/2019 11:29 Notice Type: Patient Choice Letter Notice Delivered To: Patient Relationship to Patient: Self Back Pad Inspector Name: Delivery Method: - Anay Days: Prior Verbal Notification: Recipient Understood Notice: Recipient Signature: Med Rec Note Co-signed by Attending: Coverage Notice Comment: Last DP export: 05/06/19 10:21 Patient Name: KATELYN LING Page [phone] at 1133 All edits/amendments must be made on the electronic document DICTATION DATE: 05/06/19 113 DATABASE MANAGEMENT SPECIALIST: RAJNI 05/06/191131 RPT#: [id number] ND DATE: STATUS: ADM IN [facility] [address] [place] [address] END OF REPORT
--- NOTE | 2019-05-06 12:32 | NUR ---
Nutrition follow-up: Pt tolerating small amounts of clear liquids Osmolite 1.0 fco infusing @ 40 ml/hr; advancing to goal rate of 75 ml/hr Labs reviewed Visited with pt who states she is feeling much better; sitting up in chair. RDN following.
[2019-05-06 12:38] VITALS: BP 168/83
[2019-05-06] MEDS ORDERED: KLOR-CON 1010 MEQ PO (13:31)
--- NOTE | 2019-05-06 13:40 | NUR ---
DRESSING TO TRINY DRESSING CHANGED DUE TO LEAKING. DRAIN SITE CLEAN AND DRY. DRAIN COMPRESSED. PATIENT TOLERATED WITH SMALL AMOUNT OF PAIN. CALL LIGHT WITHIN REACH.
--- NOTE | 2019-05-06 15:30 | NUR ---
PATIENT IN BED WITH NO COMPLAINTS. IV INTACT. CALL LIGHT WITHIN REACH. CALL LIGHT WITHIN REACH.
--- NOTE | 2019-05-06 17:00 | NUR ---
PATIENT IN BED WITH FAMILY AT BEDSIDE. KEEPS WORRYING ABOUT BP. EXPLAINED THAT HER BP IS A LITTLE HIGH BUT THAT TODAY IS THE FIRST DAY SHE HAS TAKEN HER MEDICINE SO IT WILL GET BETTER. DENIES PAIN. IV INTACT. CALL LIGHT WITHIN REACH. FAMILY AT BEDSIDE.
[2019-05-06 17:25] VITALS: BP 151/78
--- NOTE | 2019-05-06 18:20 | NUR ---
BP 153/82 AT THIS TIME. RETAKEN PER PATIENT REQQUEST. ASSISTED PATIENT BACK TO BED. IV INTACT. TRINY INTACT. FAMILY AT BEDSIDE. CALL LIGHT KAMLA WING. TYELNOL GIVEN FOR PAINS. STATED SHE DIDNT WANT ANYTHING ELSE TO MAKE HER DISORIENTED.
--- NOTE | 2019-05-06 20:00 | NUR ---
A/O WITH NO SIGNS OF DISTRESS. CENTRAL LINE TO THE LEFT CHEST, CDI. TRINY DRAIN WITH SEROUS DRAINGE NOTED. J TUBE STILL IN PLACE. DENIES PAIN OR OTHER NEEDS AT THIS TIME. CONT PLAN OF CARE.
[2019-05-06 20:53] VITALS: BP 157/83
--- NOTE | 2019-05-06 21:00 | NUR ---
REQUESTED THAT SHE DOES NOT WANT TO BE WOKEN UP FOR VITAL SIGNS. WILL CONT TO MONITOR
--- NOTE | 2019-05-07 03:27 | NUR ---
PT TOLERATING TUBE FEEDING AT 55ML/HR. ADVANCED RATE TO 65ML/HR. WILL CONTINUE TO MONITOR.
[2019-05-07 04:56] VITALS: BP 143/67
[2019-05-07 06:42] LABS: BASOPHILS 0.2 % (0-2); EOSINOPHILS 6.8 % (0-7); HEMATOCRIT 28.9 % (36.0-48.0); HEMOGLOBIN 9.3 g/dL (12-16); IMMATURE GRANULOCYTES 7.6 % (0-5); LYMPHOCYTES 17.6 % (15-50); MCH 29.2 pg (26.0-34.0); MCHC 32.2 g/dL (31.0-37.0); MCV 90.6 fL (80.0-100.0); MEAN PLATELET VOLUME 8.9 fL (7.4-10.4); MONOCYTES 11.1 % (2-11); NEUTROPHILS 56.7 % (40-80); PLATELET COUNT 279 10x3/uL (130-400); RBC 3.19 10x6/uL (4.00-5.40); RDW 13.9 % (11.5-14.5)
[2019-05-07 06:43] LABS: WBC 12.4 10x3/uL (4.8-10.8)
[2019-05-07 06:54] LABS: ANION GAP 13.2 mmol/L (8-16); CALCIUM 8.2 mg/dL (8.5-10.1); CARBON DIOXIDE 27.5 mmol/L (21.0-32.0); CREATININE - SERUM 2.1 mg/dL (0.6-1.3); VANCOMYCIN - RANDOM 9.2 ug/mL (10.0-20.0)
[2019-05-07 07:02] LABS: POTASSIUM - SERUM 2.7 mmol/L (3.5-5.1)
[2019-05-07 09:09] VITALS: BP 148/69
--- NOTE | 2019-05-07 10:59 | NUR ---
PATIENT TRINY DRAIN REMOVED AT THIS TIME ORDERED. PATIENT TOLERATED WITH SMALL AMOUNT OF PAIN. DRESSING APPLIED. CALL LIGHT WITHIN REACH.
[2019-05-07 11:43] VITALS: BP 149/66
[2019-05-07 16:20] VITALS: BP 143/76
--- NOTE | 2019-05-07 18:45 | NUR ---
PATIENT SITTING UP ON SIDE OF BED WITH NO COMPLAINTS. FAMILY AT BEDSIDE. NO COMPLAINTS. LEFT CVL INTACT. NO COMPLAINTS OR SIGNS OF DISTRESS. ABD DRESSING AND INCISION CDI. CALL LIGHT WITHIN REACH.
--- NOTE | 2019-05-07 19:45 | NUR ---
ASSESSMENT PER FLOWSHEET. HAND OFF ROUNDING DONE PATIENT STATES FEELS BLOTTED WITH TUBE FEEDING RATE AT 75CC'S/HR RATE WAS TURED DOWN TO 65CC'S. PER SARA LUJAN.
--- NOTE | 2019-05-07 20:00 | NUR ---
C/O PAIN RT FLANK AND ABDOMEN. NORCO TAB ONE PO GIVEN FOR PAIN CONTROL.
[2019-05-07 21:13] VITALS: BP 151/75
--- NOTE | 2019-05-07 21:15 | NUR ---
MEDS GIVEN PER SEP. AMBIEN 10MG PO GIVEN FOR SLEEP.IV PATENT LEFT SUBCLAVIAN OF NS AT 30CC'S/HR SITE CLEAR.
--- NOTE | 2019-05-07 23:02 | NUR ---
RESTING QUIETLY DENIES NEEDS.
[2019-05-08 05:11] VITALS: BP 138/76
--- NOTE | 2019-05-08 07:00 | NUR ---
PT IS RESTING IN BED WITH EYES CLOSED. RESPIRATIONS ARE EVEN AND UNLABORED. PT IS EASILY AROUSED WITH VERBAL STIMULATION. PT IS AAO X 4 UPON AROUSAL. PT REPORTS PAIN TO ABDOMINAL AREA AND BACK. WILL ADDRESS. SEE [facility]. BRUISING NOTED TO ABDOMEN TO BILATERAL LOWER QUADRANTS. INCISION X 2 COVERED WITH STERISTRIPS. DRESSING TO RIGHT AND LEFT FLANK. J TUBE NOTED AND INFUSING TUBE FEEDS AT 65/HR WITH 25ML H2O FLUSHED Q 1 HOUR. BILATERAL LOWER EXTREMITY EDEMA NOTED. PEDAL PULSES ARE PALP AND CAP REFILL <3 SECONDS. PT DENIES PRESENCE OF N/V. PT REPORTS SMALL BM THIS AM. BED IS IN THE LOWEST POSITION. CALL LIGHT AND BEDSIDE TABLE ARE WITHIN REACH. SIDE RAILS X 2. PT DENIES FURTHER NEEDS. WILL CONT TO MONITOR.
[2019-05-08 08:01] VITALS: BP 126/62
[2019-05-08 09:14] LABS: HEMATOCRIT 30.2 % (36.0-48.0); HEMOGLOBIN 9.7 g/dL (12-16); MCHC 32.1 g/dL (31.0-37.0); MCV 90.1 fL (80.0-100.0); MEAN PLATELET VOLUME 9.2 fL (7.4-10.4); RBC 3.35 10x6/uL (4.00-5.40); WBC 13.4 10x3/uL (4.8-10.8)
[2019-05-08 09:15] LABS: PLATELET COUNT 357 10x3/uL (130-400)
[2019-05-08 09:21] LABS: CALCIUM 8.2 mg/dL (8.5-10.1); CARBON DIOXIDE 27.4 mmol/L (21.0-32.0); CREATININE - SERUM 1.8 mg/dL (0.6-1.3)
[2019-05-08 09:22] LABS: POTASSIUM - SERUM 3.4 mmol/L (3.5-5.1)
[2019-05-08] MEDS ORDERED: HYDROCODON-ACE1 EAC7 PO (09:28)
[2019-05-08] MEDS ORDERED: LEVOFLOXACIN500 MG PO (09:30)
[2019-05-08 09:43] LABS: BASOPHILS 1 % (0-2); EOSINOPHILS 6 % (0-7); LYMPHOCYTES 24 % (15-50); MONOCYTES 10 % (2-11); NEUTROPHILS 56 % (40-80)
[2019-05-08 09:44] LABS: PLATELET ESTIMATE NORMAL
--- NOTE | 2019-05-08 09:47 | NUR ---
NEW BAG AND TUBE FEEDING HUNG AT THIS TIME. PT REPORTS PRESENCE OF PAIN BUT DENIES NEEDS AT THIS TIME. BED IS IN THE LOWEST POSITION. CALL LIGHT AND BEDSIDE TABLE ARE WITHIN REACH. SIDE RAILS X 2. WILL CONT TO MONITOR.
--- NOTE | 2019-05-08 10:07 | NUR ---
NUTRITION CONSULT PT TO DC HOME ON J TUBE FEEDS. PER MD ORDER, WILL BE ON CYCLIC TUBE FEEDS 16 HOURS PER DAY. REC'S 1)START J TUBE FEEDS @ 95 CC/HR AT 4 PM AND RUN 16 HOURS TO 8 AM ON DAY ONE. 2)ON DAY TWO START GOAL RATE 110 CC PER HOUR 4 PM AND RUN 16 HR TO 8 AM TOLERATED. 3)15 CC H2O FLUSH Q HOUR. RD FOLLOWING
--- NOTE | 2019-05-08 10:14 | MORECARE ---
CASE MANAGEMENT DISCHARGE SUMMARY PATIENT: KATELYN LING UNIT: [id number] ADM DATE: 05/01/19 AGE: 48 : 68 SEX: F ROOM/BED: D.2224 AUTHOR: TOMA,DOC PHYSICIAN: REFERRING PHYSICIAN: MICHAEL JOINER MD DATE OF SERVICE: 05/08/19 Discharge Plan Patient Name: KATELYN LING Facility: [facility]:[place] : 1970 Planned Disposition: Home Anticipated Discharge Date: Discharge Date: Expected LOS: Initial Reviewer: [email or web address] Initial Review Date: 05/03/2019 Generated: 05/08/19 11:14 am Comments DCP- Discharge Planning Updated by [email or web address]: Bibi Chandler on 05/08/19 9:[address] CM received discharge orders. I called Bernadette Huggins with [facility], she will be here at 12:30 for initial teaching and supply of tube feeding. I called [facility] and spoke with Kaelyn, they will see her tomorrow. I spoke with the patient and informed her of above, she is agreeable to discharge today. States her will pick her up after work. CM will continue to follow and assist with discharge planning/needs. DCP- Discharge Planning Updated by [email or web address]: Bibi Ramesh on 05/06/19 10:[address] Met with patient today concerning DME company for tube feedings. She would like to use [facility]. I called Bernadette Huggins and clinical faxed. She states she would also like home health because she will be at home much of the time alone. [facility] for [facility] signed. I called and spoke to Shelly and clinical faxed to [facility]. CM will continue to follow and assist with discharge planning/needs. DCP- Discharge Planning Updated by [email or web address]: Cielo Devi on 05/03/19 10:[address] Patient Name: KATELYN LING Admission Status: ER Accout number: [id number] Admission Date: 05-01-2019 : 1970 Admission Diagnosis: Attending: HETAL CARIAS Current LOS: 2 Anticipated DC Date: Planned Disposition: Home Primary Insurance: [employer] [facility] INS EXCHANGE Discharge Planning Comments: CM met with patient to complete initial dc planning assessment. CM educated patient on the CM role and verbal consent given by patient to complete assessment. Patient lives at home with her where she is independent with her care. At discharge patient plans to return home and feels this is a safe discharge. CM discussed availability of home health, rehab services, and medical equipment. Her family will drive her home upon discharge. Patient denied known discharge needs at this time. CM will continue to follow and will assist as needed with dc plans/needs. Napping Machine Operator: Cielo Devi DCP- Discharge Planning Updated by [email or web address]: Cielo Devi on 05/02/19 6:[address] CM attempted see patient for d/c planning patient was just post op from surgery. CM will continue to follow and assist as needed with discharge planning / needs DCPIA - Discharge Planning Initial Assessment Updated by [email or web address]: Cielo Devi on 05/03/19 11:46 am * Is the patient Alert and Oriented? Yes * How many steps to enter\exit or inside your home? * PCP WILLA * Pharmacy [facility] [place] * Preadmission Environment Home with Family * ADLs Independent * Equipment None * List name and contact numbers for known caregivers / representatives who currently or will assist patient after discharge: CORINNA LING - - [phone] * Verbal permission to speak to the caregivers and representatives has been obtained from the patient. Yes * Community resources currently utilized None * Additional services required to return to the preadmission environment? No * Can the patient safely return to the preadmission environment? Yes * Has this patient been hospitalized within the prior 30 days at any hospital? No Coverage Notice Reviewer: [email or web address] Sima Chandler Notice Issued Date-Time: 05/06/2019 11:29 Notice Type: Patient Choice Letter Notice Delivered To: Patient Relationship to Patient: Self Shirt Bander Name: Delivery Method: - Anay Days: Prior Verbal Notification: Recipient Understood Notice: Recipient Signature: Med Rec Note Co-signed by Attending: Coverage Notice Comment: Last DP export: 05/06/19 10:33 Patient Name: KATELYN LING Page 61139 at 1014 All edits/amendments must be made on the electronic document DICTATION DATE: 05/08/19 1014 COURIER DRIVER: RAJNI 05/08/19 1014 RPT#: [id number] DC DATE: STATUS: ADM IN [facility] [address] [place] [address] END OF REPORT
--- NOTE | 2019-05-08 12:35 | NUR ---
ALL DISCHARGE INSTRUCTIONS COVERED WITH PT. ALL QUESTIONS ADDRESSED. PT TO WAIT FOR TUBE FEED INSTRUCTION FROM [facility] PRIOR TO DISCHARGE. PT IS AWARE. TUBE FEEDINGS PAUSED. PT LAY FLAT IN BED. (2) SUTURES REMOVED FROM SUBCLAVIAN INSERTION SITE. SUBCLAVIAN LINE REMOVED WITH CATHETER TIP INTACT. PRESSURE APPLIED FOR (5) MINUTES. OCCLUSIVE DRESSING APPLIED. PT TO LAY FLAT FOR 15 MINUTES. PT DENIES FURTHER QUESTIONS/CONCERNS RELATED TO DISCHARGE INSTRUCTIONS. ALL DISCHARGE PAPERS SIGNED PRIOR TO SUBCLAVIAN DC. WILL CONT TO MONITOR.
--- NOTE | 2019-05-08 13:01 | NUR ---
ALL SIGNED DISCHARGE PAPERS PLACED IN PT CHART.
--- NOTE | 2019-05-08 13:40 | NUR ---
DRESSING TO RIGHT AND LEFT FLANK CHANGED. STERI STRIPS TO INCISION X 3 TO ABDOMEN. DRESSING TO LEFT SUBCLAVIAN INSERTION SITE IS CDI. PT WAITING FOR TUBE FEEDING INSTRUCTION. PT DENIES FURTHER NEEDS. AT THIS TIME. BED IS IN THE LOWEST POSITION. CALL LIGHT AND BEDSIDE TABLE ARE WITHIN REACH. SIDE RAILS X 2. WILL CONT TO MONITOR.
[2019-05-08 13:57] VITALS: BP 180/90
--- NOTE | 2019-05-08 15:01 | NUR ---
PT TRANSPORTED FROM ROOM VIA WHEELCHAIR. PT DENIES FURTHER NEEDS/QUESTIONS/CONCERNS AT THIS TIME. PT THANKS ME FOR CARE TODAY. PT TRANSPORTED BY VOLUNTEER STAFF.
[2019-05-09 04:07] LABS: IMMUNOGLOBULIN E 19 IU/mL (6-495)
--- NOTE | 2019-05-09 16:47 | MORECARE ---
CASE MANAGEMENT DISCHARGE SUMMARY PATIENT: KATELYN LING UNIT: [id number] ADM DATE: 05/01/19 AGE: 48 : 68 SEX: F ROOM/BED: D.2224 AUTHOR: TOMA,DOC PHYSICIAN: REFERRING PHYSICIAN: MICHAEL JOINER MD DATE OF SERVICE: 05/09/19 Discharge Plan Patient Name: KATELYN LING Facility: [facility]:[place] : 1970 Planned Disposition: Home Anticipated Discharge Date: Discharge Date: 05/08/2019 Expected LOS: 0 Initial Reviewer: [email or web address] Initial Review Date: 05/03/2019 Generated: 05/09/19 5:47 pm Comments DCP- Discharge Planning Updated by [email or web address]: Bibi Chandler on 05/08/19 9:[address] CM received discharge orders. I called Bernadette Huggins with [employer], she will be here at 12:30 for initial teaching and supply of tube feeding. I called [facility] and spoke with Kaelyn, they will see her tomorrow. I spoke with the patient and informed her of above, she is agreeable to discharge today. States her will pick her up after work. CM will continue to follow and assist with discharge planning/needs. DCP- Discharge Planning Updated by [email or web address]: Bibi Ramesh on 05/06/19 10:[address] Met with patient today concerning DME company for tube feedings. She would like to use [employer]. I called Bernadette Huggins and clinical faxed. She states she would also like home health because she will be at home much of the time alone. JEFF for [facility] signed. I called and spoke to Shelly and clinical faxed to [employer] [facility]. CM will continue to follow and assist with discharge planning/needs. DCP- Discharge Planning Updated by [email or web address]: Cielo Devi on 05/03/19 10:[address] Patient Name: KATELYN LING Admission Status: ER Accout number: [id number] Admission Date: 05-01-2019 : 1970 Admission Diagnosis: Attending: HETAL CARIAS Current LOS: 2 Anticipated DC Date: Planned Disposition: Home Primary Insurance: [employer] INS EXCHANGE Discharge Planning Comments: CM met with patient to complete initial dc planning assessment. CM educated patient on the CM role and verbal consent given by patient to complete assessment. Patient lives at home with her where she is independent with her care. At discharge patient plans to return home and feels this is a safe discharge. CM discussed availability of home health, rehab services, and medical equipment. Her family will drive her home upon discharge. Patient denied known discharge needs at this time. CM will continue to follow and will assist as needed with dc plans/needs. Aoc Director Combat Plans Officer: Cielo Devi DCP- Discharge Planning Updated by [email or web address]: Cielo Devi on 05/02/19 6:[address] CM attempted see patient for d/c planning patient was just post op from surgery. CM will continue to follow and assist as needed with discharge planning / needs DCPIA - Discharge Planning Initial Assessment Updated by [email or web address]: Cielo Devi on 05/03/19 11:46 am * Is the patient Alert and Oriented? Yes * How many steps to enter\exit or inside your home? * PCP WILLA * Pharmacy [facility] * Preadmission Environment Home with Family * ADLs Independent * Equipment None * List name and contact numbers for known caregivers / representatives who currently or will assist patient after discharge: CORINNA LING - - [phone] * Verbal permission to speak to the caregivers and representatives has been obtained from the patient. Yes * Community resources currently utilized None * Additional services required to return to the preadmission environment? No * Can the patient safely return to the preadmission environment? Yes * Has this patient been hospitalized within the prior 30 days at any hospital? No Coverage Notice Reviewer: [email or web address] Sima Chandler Notice Issued Date-Time: 05/06/2019 11:29 Notice Type: Patient Choice Letter Notice Delivered To: Patient Relationship to Patient: Self Retention Representative Name: Delivery Method: - Anay Days: Prior Verbal Notification: Recipient Understood Notice: Recipient Signature: Med Rec Note Co-signed by Attending: Coverage Notice Comment: Last DP export: 05/08/19 9:14 Patient Name: KATELYN LING Page [id number] at [id number] All edits/amendments must be made on the electronic document DICTATION DATE: 05/09/191646 [employer] MANAGER: DM 05/09/191646 RPT#: [id number] DC DATE:05/08/19 STATUS: DIS IN [facility] [address] [place] [address] END OF REPORT
== END 2019-05-08 15:18 | disposition home health service (06) | DRG 919 ==
LOC: D.ER 13:59 → D.MS 17:38 → D.ICU 17:38 → D.MS 05-04 18:53
PROVIDERS: Family Medicine; Internal Medicine; Internal Medicine Pulmonary Disease; ADMIT Surgery; ATTEND Surgery
PROC: 0DB64ZZ Excision of Stomach, Percutaneous Endoscopic Approach (ICD-10-PCS; 2019-05-02)
PROC: 0DHA3UZ Insertion of Feeding Device into Jejunum, Percutaneous Approach (ICD-10-PCS; 2019-05-02)
PROC: 05H633Z Insertion of Infusion Device into Left Subclavian Vein, Percutaneous Approach (ICD-10-PCS; 2019-05-02)
PROC: 0W9G4ZZ Drainage of Peritoneal Cavity, Percutaneous Endoscopic Approach (ICD-10-PCS; principal; 2019-05-02 10:44)
DX: T81.32XA Disruption of internal operation (surgical) wound, not elsewhere classified, initial encounter (principal); K65.1 Peritoneal abscess; K65.8 Other peritonitis; T81.43XA Infection following a procedure, organ and space surgical site, initial encounter; T85.598A Other mechanical complication of other gastrointestinal prosthetic devices, implants and grafts, initial encounter; N17.9 Acute kidney failure, unspecified; Z68.42 Body mass index [BMI] 45.0-49.9, adult; I47.1 Supraventricular tachycardia; J90 Pleural effusion, not elsewhere classified; T79.7XXA Traumatic subcutaneous emphysema, initial encounter; E66.01 Morbid (severe) obesity due to excess calories; Z98.84 Bariatric surgery status; J98.2 Interstitial emphysema; R60.1 Generalized edema; I10 Essential (primary) hypertension; E87.6 Hypokalemia; M19.90 Unspecified osteoarthritis, unspecified site

== ENCOUNTER → 2019-05-23 07:35 | Outpatient (CLI) | payer OTHER ==
[2019-05-03 11:20] VITALS: BMI 45.2
[~2019-05-23 07:35] MED LIST changes: +KLOR-CON 1010 MEQ PO; +LEVOFLOXACIN500 MG PO
== END | disposition home or self-care (01) ==
LOC: D.CT 07:35
PROVIDERS: ATTEND Surgery
DX: R13.10 Dysphagia, unspecified (principal)

== ENCOUNTER → 2019-06-19 13:13 | Outpatient (CLI) | payer OTHER ==
[2019-05-03 11:20] VITALS: BMI 45.2
== END | disposition home or self-care (01) ==
LOC: D.RAD 13:13
PROVIDERS: ATTEND Internal Medicine Pulmonary Disease
DX: J45.909 Unspecified asthma, uncomplicated (principal)